=== PATIENT | female | born 1990 | race Caucasian/White ===

== ENCOUNTER 2017-12-19 19:24 | Inpatient (IN) | payer MEDICAID ==
[2017-12-19] MEDS: TERBUTALINE 1 MG/ML INJ SC (21:22)
[2017-12-19] MEDS: LACTATED RINGER'S 1,000 ML IV ×2 (21:22→22:47)
[2017-12-19 21:25] LABS: ADD UMIC NO; UR ASCORBIC ACID NEGATIVE (NEGATIVE); UR BILIRUBIN (Dip) NEGATIVE (NEGATIVE); UR BLOOD (Dip) NEGATIVE (NEGATIVE); UR CLARITY SLIGHTLY CLOUDY (CLEAR); UR COLOR YELLOW (YELLOW); UR GLUCOSE (Dip) 3+ mg/dL (NEGATIVE); UR KETONES (Dip) NEGATIVE (NEGATIVE); UR LEUKOCYTE ESTERASE (Dip) NEGATIVE Leu/ul (NEGATIVE); UR NITRITE (Dip) NEGATIVE (NEGATIVE); UR RBC 1 /HPF (0-5); UR SPECIFIC GRAVITY (Dip) 1.014 (1.003-1.030); UR SQUAMOUS EPITHELIAL CELL FEW /HPF (FEW); UR TOTAL PROTEIN (Dip) NEGATIVE (NEGATIVE); UR UROBILINOGEN (Dip) NEGATIVE (NEGATIVE); UR WBC 0 /HPF (0-5)
[2017-12-19] MEDS: BETAMET NA PHOS/AC(6 MG/ML) 5ML INJ IM (23:27)
[2017-12-20] MEDS: NIFEdipine 10 MG CAP PO ×2 (00:09→06:28)
[2017-12-20] MEDS: LACTATED RINGER'S 1,000 ML IV ×2 (06:00→13:35)
[2017-12-20] MEDS ORDERED: TERBUTALINE 1 ML (09:50)
[2017-12-20] MEDS ORDERED: ACETAMINOPHEN 325 MG TAB (09:51)
[2017-12-20] MEDS: TERBUTALINE 1 MG/ML INJ SC (09:53)
[2017-12-20] MEDS: ACETAMINOPHEN 325 MG TAB PO (09:53)
[2017-12-20] MEDS: PRENATAL VITAMIN PO (09:58)
[2017-12-20] MEDS ORDERED: BETAMET NA PHOS/AC(6 MG/ML) 5ML INJ (22:57)
[2017-12-20] MEDS: BETAMET NA PHOS/AC(6 MG/ML) 5ML INJ IM (23:07)
== END 2017-12-20 23:59 | disposition home or self-care (01) | DRG 780 ==
LOC: OBT 19:24 → L-D 12-20 23:32 → PP1 12-20 23:34 → OBT 23:04 → PP1 23:22
DX: O47.03 False labor before 37 completed weeks of gestation, third trimester (principal); Z3A.36 36 weeks gestation of pregnancy
CPT/HCPCS: 76818; 81001; 81003; 96360; 96361; 96372

== ENCOUNTER 2018-01-04 20:30 | Inpatient (IN) | payer MEDICAID ==
[2018-01-04] MEDS ORDERED: OXYTOCIN 30 UNITS/LR 500 ML IV (23:30)
[2018-01-04] MEDS ORDERED: METHYLERGONOVINE 0.2 MG INJ IM (23:30)
[2018-01-04] MEDS ORDERED: BUTORPHANOL 2 MG INJ IV ×2 (23:30)
[2018-01-04] MEDS ORDERED: MISOPROSTOL 200 MCG TAB PR (23:30)
[2018-01-04] MEDS ORDERED: CARBOPROST 250 MCG INJ IM (23:30)
[2018-01-05] MEDS: LACTATED RINGER'S 1,000 ML IV ×4 (00:24→13:08)
[2018-01-05] MEDS ORDERED: OXYCODONE/ACETAMINOPHEN (5/325) TAB PO (00:30)
[2018-01-05 00:43] LABS: ADD MAN DIFF? NO
[2018-01-05 00:52] LABS: BASOPHILS % 0.4 % (0.0-2.0); EOSINOPHILS # 0.1 10^3/ul (0.0-0.5); HEMATOCRIT 34.2 % (37.0-47.0); HEMOGLOBIN 10.9 g/dl (12.0-16.0); LYMPHOCYTES # 1.9 10^3/ul (0.8-2.9); LYMPHOCYTES % 22.9 % (15.0-51.0); MEAN CORPUSCULAR HEMOGLOBIN 25.2 pg (29.0-33.0); MEAN CORPUSCULAR HGB CONC 31.9 g/dl (32.0-37.0); MEAN PLATELET VOLUME 12.6 fl (7.4-10.4); MONOCYTE # 0.4 10^3/ul (0.3-0.9); MONOCYTES % 5.4 % (0.0-11.0); NEUTROPHIL # 5.6 10^3/ul (1.6-7.5); NEUTROPHILS % 68.7 % (39.0-77.0); NUCLEATED RED BLOOD CELLS% 0.2 /100WBC (0.0-0.0); PLATELET COUNT 149 10^3/UL (140-415); RED BLOOD COUNT 4.33 10^6/ul (4.20-5.40); RED CELL DISTRIBUTION WIDTH 14.6 % (11.5-14.5)
[2018-01-05 00:52] LABS: WHITE BLOOD COUNT 8.2 10^3/ul (4.8-10.8)
[2018-01-05 01:10] LABS: INR 0.96; PARTIAL THROMBOPLASTIN TIME 28.1 Sec (25.0-35.0); PROTIME 12.9 Sec (11.9-14.9)
[2018-01-05 01:44] LABS: HEPATITIS B SURFACE ANTIGEN NEGATIVE (NEGATIVE)
[2018-01-05] MEDS ORDERED: FENTAnyl 2MCG/ML-ROPIV 0.2% 100 ML (06:17)
[2018-01-05] MEDS ORDERED: ONDANSETRON 4 MG INJ IV (08:30)
[2018-01-05] MEDS ORDERED: DIPHENHYDRAMINE 50 MG INJ IV (08:30)
[2018-01-05] MEDS ORDERED: NALOXONE (0.4 MG/ML) INJ IV (08:30)
[2018-01-05] MEDS: OXYTOCIN 30 UNITS/LR 500 ML IV ×2 (13:48→14:23)
[2018-01-05] MEDS: LIDOCAINE 1% (MPF) 30 ML INJ INJ (14:22)
[2018-01-05] MEDS: FENTAnyl 2MCG/ML-ROPIV 0.2% 100 ML BAG EPI (14:22)
[2018-01-05 15:40] LABS: RAPID PLASMA REAGIN NONREACTIVE (NR)
[2018-01-05] MEDS: IBUPROFEN 600 MG TAB PO ×2 (15:46→18:00)
[2018-01-05] MEDS: LACTATED RINGER'S 1,000 ML IV* ×2 (16:14→21:42)
[2018-01-05] MEDS ORDERED: ZOLPIDEM 5 MG TAB PO (16:30)
[2018-01-05] MEDS ORDERED: LANOLIN 7 GM TUBE TOP (16:30)
[2018-01-05] MEDS ORDERED: CARBOPROST 250 MCG INJ IM (16:30)
[2018-01-05] MEDS ORDERED: DIBUCAINE 1% 30 GM OINT PR (16:30)
[2018-01-05] MEDS ORDERED: WITCH HAZEL/GLYCERIN PAD PR (16:30)
[2018-01-05] MEDS ORDERED: BENZOCAINE 20% 56 ML SPRAY TOP (16:30)
[2018-01-05] MEDS ORDERED: OXYTOCIN 30 UNITS/LR 500 ML IV (16:30)
[2018-01-05] MEDS ORDERED: METHYLERGONOVINE 0.2 MG INJ IM (16:30)
[2018-01-05] MEDS ORDERED: MISOPROSTOL 200 MCG TAB PR (16:30)
[2018-01-05] MEDS: HYDROCODONE/APAP (5/325) TAB PO ×2 (16:50→21:40)
[2018-01-05] MEDS: CEPHALEXIN 500 MG CAP PO (18:09)
[2018-01-05] MEDS: SENNA/DOCUSATE NA (8.6MG/50MG) TAB PO (21:25)
[2018-01-05] MEDS: MAGNESIUM HYDROXIDE 30ML CUP PO (21:25)
[2018-01-06] MEDS: CEPHALEXIN 500 MG CAP PO ×5 (00:30→23:15)
[2018-01-06] MEDS: IBUPROFEN 600 MG TAB PO ×5 (00:30→23:16)
[2018-01-06] MEDS: HYDROCODONE/APAP (5/325) TAB PO ×2 (01:57→10:21)
[2018-01-06 08:26] LABS: ADD MAN DIFF? NO
[2018-01-06 08:31] LABS: WHITE BLOOD COUNT 7.5 10^3/ul (4.8-10.8)
[2018-01-06 08:31] LABS: BASOPHILS % 0.4 % (0.0-2.0); EOSINOPHILS # 0.1 10^3/ul (0.0-0.5); EOSINOPHILS % 1.3 % (0.0-7.0); HEMATOCRIT 30.4 % (37.0-47.0); HEMOGLOBIN 9.8 g/dl (12.0-16.0); LYMPHOCYTES % 27.1 % (15.0-51.0); MEAN CORPUSCULAR HEMOGLOBIN 25.5 pg (29.0-33.0); MEAN CORPUSCULAR HGB CONC 32.2 g/dl (32.0-37.0); MEAN CORPUSCULAR VOLUME 79.2 fl (82.0-101.0); MEAN PLATELET VOLUME 12.3 fl (7.4-10.4); MONOCYTE # 0.5 10^3/ul (0.3-0.9); MONOCYTES % 6.5 % (0.0-11.0); NEUTROPHIL # 4.8 10^3/ul (1.6-7.5); NEUTROPHILS % 63.9 % (39.0-77.0); PLATELET COUNT 135 10^3/UL (140-415); RED BLOOD COUNT 3.84 10^6/ul (4.20-5.40); RED CELL DISTRIBUTION WIDTH 14.7 % (11.5-14.5)
[2018-01-06] MEDS: LACTATED RINGER'S 1,000 ML IV* ×2 (08:46→16:14)
[2018-01-06] MEDS: SENNA/DOCUSATE NA (8.6MG/50MG) TAB PO ×2 (08:50→23:15)
[2018-01-06] MEDS: MAGNESIUM HYDROXIDE 30ML CUP PO ×2 (08:50→23:15)
[2018-01-07] MEDS: LACTATED RINGER'S 1,000 ML IV* ×2 (00:14→07:42)
[2018-01-07] MEDS: GUAIFENESIN/DM 5ML CUP PO ×2 (02:36→11:07)
[2018-01-07] MEDS: HYDROCODONE/APAP (5/325) TAB PO ×3 (04:30→10:18)
[2018-01-07] MEDS: CEPHALEXIN 500 MG CAP PO ×3 (05:55→18:37)
[2018-01-07] MEDS: IBUPROFEN 600 MG TAB PO ×3 (05:55→18:37)
[2018-01-07] MEDS: DIPHTH/TET/ACEL PERTUSS (ADULT) 0.5 ML VIAL IM* (07:42)
[2018-01-07] MEDS: MEASLES,MUMPS,RUBELLA VACCINE INJ SC* (07:43)
[2018-01-07] MEDS: VARICELLA VACCINE LIVE/PF 1,350 UNIT/0.5 ML ML SC* (07:43)
[2018-01-07] MEDS: MAGNESIUM HYDROXIDE 30ML CUP PO (09:00)
[2018-01-07] MEDS: SENNA/DOCUSATE NA (8.6MG/50MG) TAB PO (09:00)
[2018-01-07] MEDS ORDERED: ACET/BUTAL/CAFF TAB PO (11:00)
[2018-01-07] MEDS: LACTATED RINGER'S 1,000 ML IV (11:07)
== END 2018-01-07 21:30 | disposition home or self-care (01) | DRG 775 ==
LOC: OBT 20:30 → L-D 20:31 → PP1 01-05 16:12 → OBT 23:06 → L-D 23:00
PROVIDERS: Obstetrics & Gynecology
PROC: 10E0XZZ Delivery of Products of Conception, External Approach (ICD-10-PCS; principal; 2018-01-04)
PROC: 0HQ9XZZ Repair Perineum Skin, External Approach (ICD-10-PCS; 2018-01-04)
PROC: 3E033VJ Introduction of Other Hormone into Peripheral Vein, Percutaneous Approach (ICD-10-PCS; 2018-01-04)
DX: O70.0 First degree perineal laceration during delivery (principal); Z37.0 Single live birth; Z3A.38 38 weeks gestation of pregnancy
CPT/HCPCS: 62319; 85025; 85610; 85730; 86592; 86850; 86900; 86901; 87340

== ENCOUNTER 2018-01-30 17:47 | Emergency (ER) | payer SELFPAY, MEDICAID | END 2018-01-30 19:51 | disposition left against medical advice (07) | LOC: E/R 19:51 | DX: Z53.21 Procedure and treatment not carried out due to patient leaving prior to being seen by health care provider (principal) ==